=== PATIENT | male | born 1955 | race African-American/Black ===

== ENCOUNTER 2021-01-07 00:19 | Emergency (ER) | payer SELFPAY ==
[~2021-01-07] VITALS: Ht 177.8 cm; Wt 91.0 kg
[2021-01-07 01:03] LABS: CHLORIDE 101 mEq/L (98-107)
[2021-01-07 01:08] LABS: EOSINOPHILS % 1.3 % (0.0-5.0); ETHANOL BLOOD < 10 mg/dL; HEMATOCRIT. 34.5 % (42.0-52.0); HEMOGLOBIN. 12.1 g/dL (14.0-18.0); LYMPHOCYTES % 21.6 % (20.0-50.0); MEAN CORPUSCULAR HEMOGLOBIN 30.4 pg (28.0-32.0); MEAN CORPUSCULAR VOLUME 86.9 fL (80.0-94.0); MEAN PLATELET VOLUME 8.5 fl (7.4-10.4); MONOCYTES % 13.1 % (2.0-8.0); PLATELET 233 x1000/uL (130-400); RED BLOOD CELL COUNT 3.98 mill/uL (4.7-6.1); RED CELL DISTRIBUTION WIDTH 16.2 % (11.6-14.6)
[2021-01-07 06:00] VITALS: BP 133/79
== END 2021-01-07 07:31 | disposition home or self-care (01) ==
LOC: ER 00:19
DX: L97.519 Non-pressure chronic ulcer of other part of right foot with unspecified severity (principal); F10.10 Alcohol abuse, uncomplicated; Y90.0 Blood alcohol level of less than 20 mg/100 ml
CPT/HCPCS: 36415; 80053; 80307; 80320; 80329; 85025; 99283; G0480